=== PATIENT | female | born 1960 | race African-American/Black ===

== ENCOUNTER 2017-08-13 06:03 | Emergency (ER) | payer OTHER ==
[2017-08-13 06:11] VITALS: BP 155/95; PULSE 69; TEMP 97.8; BMI 29.7
--- NOTE | 2017-08-13 06:18 | PDOC ---
History of Present Illness - General Chief Complaint: Injury Stated Complaint: RIGHT HIP PAIN, LEFT TOE/FALL Time Seen by Provider: 08/13/17 06:13 - History of Present Illness Initial Comments: 08/13/17 06:13 Ms. Jaya Joy is a 56 yo female w/ pmh of htn who presents following fall at workplace. She reports that she slipped on some water at work and fell on her left side, hurting her R hip, R shoulder, and making contact with her L great toe. One of her coworkers called EMS. She denies hitting her head, LOC, or other neurological sequelae. The patient denies chest pain, shortness of breath, headache and dizziness. Denies fever, chills, nausea, vomit, diarrhea and constipation. Denies dysuria, frequency, urgency and hematuria. Allergies: acetaminophen, ibuprofen, excedrin Past History - Past Medical History Allergies/Adverse Reactions: Allergies Allergy/AdvReac Type Severity Reaction Status Date / Time acetaminophen [From Tylenol] Allergy Verified 08/13/17 06:08 diphenhydramine citrate Allergy Verified 08/13/17 06:08 [From Excedrin PM] ibuprofen [From Motrin] Allergy Verified 08/13/17 06:08 Home Medications: Ambulatory Orders Naproxen Sodium [Aleve] 220 mg PO BID 08/13/17 Naproxen [Naprosyn -] 375 mg PO BID PRN 08/13/17 - Suicide/Smoking/Psychosocial Hx Smoking History: Never smoked Have you smoked in the past 12 months: No Information on smoking cessation initiated: No Hx Alcohol Use: No Drug/Substance Use Hx: No Review of Systems - Review of Systems Comments:: 08/13/17 06:18 GENERAL/CONSTITUTIONAL: No fever or chills. No weakness. HEAD, EYES, EARS, NOSE AND THROAT: No change in vision. No ear pain or discharge. No sore throat. CARDIOVASCULAR: No chest pain or shortness of breath RESPIRATORY: No cough, wheezing, or hemoptysis. GASTROINTESTINAL: No nausea, vomiting, diarrhea or constipation. GENITOURINARY: No dysuria, frequency, or change in urination. MUSCULOSKELETAL: Right shoulder pain. Right hip pain. Left great toe pain. SKIN: No rash NEUROLOGIC: No headache, vertigo, loss of consciousness, or change in strength/ sensation. ENDOCRINE: No increased thirst. No abnormal weight change HEMATOLOGIC/LYMPHATIC: No anemia, easy bleeding, or history of blood clots. ALLERGIC/IMMUNOLOGIC: No hives or skin allergy. *Physical Exam - Vital Signs Last Vital Signs Temp Pulse Resp BP Pulse Ox 97.8 F 69 14 155/95 100 08/13/17 06:08 08/13/17 06:08 08/13/17 06:08 08/13/17 06:08 08/13/17 06:08 - Physical Exam Comments: 08/13/17 06:19 GENERAL: Awake, alert, and fully oriented, in no acute distress HEAD: No signs of trauma, normocephalic, atraumatic EYES: PERRLA, EOMI, sclera anicteric, conjunctiva clear ENT: Auricles normal inspection, hearing grossly normal, nares patent, oropharynx clear without exudates. Moist mucosa NECK: Normal ROM, supple, no lymphadenopathy, JVD, or masses LUNGS: No distress, speaks full sentences, clear to auscultation bilaterally HEART: Regular rate and rhythm, normal S1 and S2, no murmurs, rubs or gallops, peripheral pulses normal and equal bilaterally. ABDOMEN: Soft, nontender, normoactive bowel sounds. No guarding, no rebound. No masses EXTREMITIES: +Patient has pain at hip with raising of right leg. Right shoulder normal ROM, strength, and sensation. Left Great toe negative for acute deformity or decreased strength/sensation. NEUROLOGICAL: Cranial nerves II through XII grossly intact. Normal speech, normal gait, no focal sensorimotor deficits SKIN: Warm, Dry, normal turgor, no rashes or lesions noted. Medical Decision Making - Medical Decision Making 08/13/17 06:30 Patient presents for evaluation post fall. Given normal shoulder and foot exam elected to limit imaging to R hip. Patient signed out to oncoming team for further care needs. *DC/Admit/Observation/Transfer Diagnosis at time of Disposition: Fall Qualifiers: Encounter type: initial encounter Qualified Code(s): W19.XXXA - Unspecified fall, initial encounter - Discharge Dispostion Disposition: HOME Condition at time of disposition: Good - Referrals Referrals: STAFF,NOT ON [Primary Care Provider] - - Patient Instructions Additional Instructions: Please use Naproxen and ice for your pain and walk/exercise as tolerated. Please return to the Emergency Department for any worsening or concerning symptoms. - Post Discharge Activity Forms/Work/School Notes: Back to Work
[2017-08-13] MEDS ORDERED: CYCLOBENZAPRINE HCL 10 MG TABLET (FP) PO ONE (06:24)
--- NOTE | 2017-08-13 06:24 | PDOC ---
Attending Attestation - Resident Resident Name: Lico Levine - ED Attending Attestation I have performed the following: I have examined & evaluated the patient, The case was reviewed & discussed with the resident, I agree w/resident's findings & plan - HPI HPI: 08/13/17 06:25 Pt slipped and fell at work - Physicial Exam PE: 08/13/17 06:25 Hip pain and toe pain and muscle strains. Agree with resident - Medical Decision Making 08/13/17 06:25 XRAYS; UA to r/o blood; flexeril and reevaluation.
[2017-08-13] MEDS ORDERED: CYCLOBENZAPRINE HCL 10 MG TABLET (FP) ONE (06:43)
--- NOTE | 2017-08-13 07:00 | PDOC ---
*Physical Exam - Vital Signs Last Vital Signs Temp Pulse Resp BP Pulse Ox 97.8 F 69 14 155/95 100 08/13/17 06:08 08/13/17 06:08 08/13/17 06:08 08/13/17 06:08 08/13/17 06:08 - Physical Exam General Appearance: Yes: Nourished, Appropriately Dressed Neck: positive: Trachea midline, Supple Respiratory/Chest: positive: Lungs Clear Cardiovascular: positive: S1, S2 Gastrointestinal/Abdominal: positive: Soft Integumentary: positive: Normal Color, Dry, Warm Neurologic: positive: cardiology specialist II-XII NML intact, Fully Oriented, Alert (Non-ataxic, non-atalgic gait) ED Treatment Course - Medications Given in the ED: ED Medications Discontinued Medications Generic Name Dose Route Start Last Admin Trade Name Freq PRN Reason Stop Dose Admin Cyclobenzaprine HCl 10 mg 08/13/17 06:24 08/13/17 06:42 Flexeril - PO 08/13/17 06:25 10 mg ONCE ONE Administration Medical Decision Making - Medical Decision Making 08/13/17 06:57 Patient signed out by Dr. Leivne (Resident) and Dr. Martinez (Attending). Patient is a 56 y.o. female who presents following a fall with no LOC and complaints R Hip pain. At time of signout patient resting comfortably and is ambulatory, R Hip XR pending. 08/13/17 08:04 R Hip XR negative for acute fracture/dislocation. Patient to be discharged home with return precautions. 08/13/17 22:25 *DC/Admit/Observation/Transfer Diagnosis at time of Disposition: Fall Qualifiers: Encounter type: initial encounter Qualified Code(s): W19.XXXA - Unspecified fall, initial encounter - Discharge Dispostion Disposition: HOME Condition at time of disposition: Good Admit: No - Referrals Referrals: STAFF,NOT ON [Primary Care Provider] - - Patient Instructions Additional Instructions: Please use Naproxen and ice for your pain and walk/exercise as tolerated. Please return to the Emergency Department for any worsening or concerning symptoms. - Post Discharge Activity Forms/Work/School Notes: Back to Work
[2017-08-13 07:04] LABS: URINE APPEARANCE SLCLOUDY; URINE BILIRUBIN NEGATIVE (NEGATIVE); URINE BLOOD NEGATIVE (NEGATIVE); URINE COLOR STRAW; URINE GLUCOSE (UA) NEGATIVE (NEGATIVE); URINE KETONE NEGATIVE (NEGATIVE); URINE NITRITE NEGATIVE (NEGATIVE); URINE PROTEIN NEGATIVE (NEGATIVE); URINE UROBILINOGEN NEGATIVE mg/dL (0.2-1.0)
[2017-08-13 18:41] LABS: URINE LEUK ESTERASE TRACE (NEGATIVE)
[2017-08-13 21:31] LABS: URINE BACTERIA FEW /hpf (NEGATIVE); URINE RBC 0-1 /hpf (0-3)
== END 2017-08-13 08:25 | disposition home or self-care (01) ==
LOC: JER 06:03
DX: M25.551 Pain in right hip (principal); W01.0XXA Fall on same level from slipping, tripping and stumbling without subsequent striking against object, initial encounter; Y93.9 Activity, unspecified; Y92.9 Unspecified place or not applicable; Y99.0 Civilian activity done for income or pay; I10 Essential (primary) hypertension
CPT/HCPCS: 73502-TC-RT; 81003; 81015; 99282-25